=== PATIENT | female | born 1955 | race Caucasian/White ===

== ENCOUNTER 2022-07-10 23:18 | Emergency (ER) | payer MEDICARE, MEDICAID, SELFPAY ==
[2022-07-10 23:19] VITALS: BMI 26.3
--- NOTE | 2022-07-10 23:22 | W.ED.GENADLT ---
HPI - General Adult General: Chief complaint: General Medical Stated complaint: Hypertension Time Seen by Provider: 07/10/22 23:21 History of Present Illness: Ms. Yoo is a 67-year-old lady with history of hypertension who presents to the emergency department due to generalized mental health concern. She has noticed 1 day history of increased blood pressure associated with nausea and vomiting x2. She denies associated chest pain or shortness of breath. She has been a very considerable stress and her believes that this may be related. Otherwise denies medical concerns. She has been compliant with her medication regimen. Intensity of symptoms is moderate. Course has persisted. No other specific changes in health, exacerbating, or alleviating factors identified. Onset (ago): hour(s) Severity: moderate Associated symptoms: Reports malaise, nausea and vomiting Review of Systems General: Reports: 10 or more systems reviewed and unremarkable except in HPI and below Const: Reports: malaise GI: Reports: nausea and vomiting PFS ED PFSH: Medical History (Updated 07/25/22 @ 16:27 by Sebastián Rosen MD) Hypertension Surgical History (Updated 07/25/22 @ 16:27 by Sebastián Rosen MD) No significant past surgical history Social History (Updated 07/25/22 @ 16:27 by Sebastián Rosen MD) Smoking and tobacco status: never smoked Physical Exam Const: COMMON NORMALS: alert GENERAL APPEARANCE: cooperative and well developed HENMT: COMMON NORMALS: normocephalic and atraumatic HEAD & SCALP: normocephalic and atraumatic Eye: COMMON NORMALS: conjunctivae normal CONJUNCTIVA: Yes conjunctivae normal SCLERA: sclerae normal Neck/C-Spine: COMMON NORMALS: supple GENERAL: Yes trachea midline Resp: COMMON NORMALS: normal respiratory effort EFFORT & INSPECTION: Yes able to speak in complete sentences Cardio: COMMON NORMALS: regular rate and regular rhythm RATE: regular rate RHYTHM: regular rhythm GI: COMMON NORMALS: Soft to palpation PALPATION: Yes Soft to palpation and No Tenderness to palpation present (GI) PERCUSSION: normal to percussion Extremity: GENERAL: Yes normal exam except as noted and No edema Neuro: COMMON NORMALS: moves all extremities SENSORIUM/ORIENTATION: Yes alert and No Orientation impaired Psych: COMMON NORMALS: mental status grossly normal and Normal thought process present THOUGHT PROCESS: Normal thought process present Course ED course: - Patient was seen and evaluated by me at bedside - Patient placed on cardiac monitors, IV access obtained - Initial evaluation notable for exam as above - Labs and xrays personally interpreted by me. EKG shows sinus bradycardia with no STEMI - Fluids, antiemetic, and hypertensive given - Labs notable for mild leukocytosis. Normal hemoglobin. Metabolic panel with mild hypokalemia, replenishment ordered. - Imaging notable for no lobar consolidation or pneumothorax. - Upon serial reexamination after treatment the patient was improved. She did have mild diaphoresis associated with initial low blood pressure related to hydralazine. - Based on patient history, evaluation, and testing as interpreted the most likely cause of the patient's condition is hypertension and generalized illness of uncertain etiology - The results of ED evaluation were discussed with the patient including prescriptions and/or symptomatic cares (if applicable) including appropriate and responsible use, followup plan, and return precautions. The patient verbalized understanding and felt safe for discharge. - Patient discharged in satisfactory condition. Note: Click bubbles or prepopulated العراق[place] in note writing are used for assistance with data collection and billing and are inherently more limited than narrative and other text portions of this note. Please use narrative for additional clinical history and defer to narrative/free test for any case of contradictory information. If information appears in only free text or click bubble it should be considered present or absent as reported. Please contact note customs entry writer for clarifications of clinical information or contradictory information. MDM is a brief summary, contradictory or erroneous seeming information should be clarified and full note should be reviewed. Vital Signs: Vital signs: Vital Signs Temperature 98.0 F 07/10/22 23:24 Pulse Rate 59 L 07/11/22 03:06 Respiratory Rate 15 07/11/22 03:06 Blood Pressure 121/64 07/11/22 03:06 Pulse Oximetry 94 07/11/22 03:06 Oxygen Delivery Wa thod 07/10/22 23:24 MDM - General Adult Medical Decision Making 67-year-old lady with history of hypertension presenting with generalized illness associated with high blood pressure and increased stress lately. No evidence of endorgan dysfunction on ED evaluation. Patient is neurovascularly intact. Satisfactory for outpatient management. Medical Records I reviewed the patient's medical records. Lab Data I reviewed the patient's lab results. : 07/11/22 00:01 07/11/22 00:01 Radiology Impressions Chest X-Ray 07/10/22 23:23 IMPRESSION: Hazy and linear opacities in the left lower hemithorax likely represents atelectasis although left basilar pneumonitis cannot be excluded. Laboratory Results WBC 13.2 10^3/uL (4.0-10.0) H 07/11/22 00:01 Corrected WBC Cancelled 07/10/22 23:15 RBC 4.58 10^6/uL (4.1-5.3) 07/11/22 00:01 Hgb 13.6 g/dL (11.5-15.3) 07/11/22 00:01 Hct 40.2 % (37.0-47.0) 07/11/22 00:01 MCV 87.8 fl (81-99) 07/11/22 00:01 MCH 29.7 pg (28.0-34.0) 07/11/22 00:01 MCHC 33.8 g/dL (30.0-36.0) 07/11/22 00:01 RDW 12.7 % (12.1-15.1) 07/11/22 00:01 Plt Count 246 10^3/cmm (130-400) 07/11/22 00:01 MPV 11.2 fL (7.4-10.4) H 07/11/22 00:01 Gran % Cancelled 07/10/22 23:15 Neut % (Auto) 78.0 % 07/11/22 00:01 Lymph % (Auto) 13.1 % 07/11/22 00:01 [place] % (Auto) 6.2 % 07/11/22 00:01 Eos % (Auto) 1.7 % 07/11/22 00:01 Baso % (Auto) 0.5 % 07/11/22 00:01 Neut # (Auto) 10.32 10^3/uL (1.8-7.7) H 07/11/22 00:01 Lymph # (Auto) 1.7 10^3/uL (0.8-4.8) 07/11/22 00:01 [place] # (Auto) 0.8 10^3/uL (0.2-0.9) 07/11/22 00:01 Eos # (Auto) 0.2 10^3/uL (0.0-0.8) 07/11/22 00:01 Baso # (Auto) 0.1 10^3/uL (0.0-0.1) 07/11/22 00:01 Absolute Gran (auto) Cancelled 07/10/22 23:15 Nucleated RBC % (auto) 0 % 07/11/22 00:01 Nucleated RBCs # 0.0 /100WBC 07/11/22 00:01 Sodium 138 mmol/L (136-145) 07/11/22 00:01 Potassium 3.2 mmol/L (3.5-5.1) L 07/11/22 00:01 Chloride 98 mmol/L (98-107) 07/11/22 00:01 Carbon Dioxide 26 mmol/L (22-29) 07/11/22 00:01 Anion Gap 17.2 (5-19) 07/11/22 00:01 BUN 15 mg/dL (8-23) 07/11/22 00:01 Creatinine 0.6 mg/dL (0.5-0.9) 07/11/22 00:01 GFR Calculation 99.4 mL/min (90-130) 07/11/22 00:01 Glucose 154 mg/dL (65-115) H 07/11/22 00:01 POC Glucose 151 mg/dL (70-110) H 07/11/22 02:58 Calculated Osmolality 290 mOsm/kg (285-295) 07/11/22 00:01 Calcium 9.0 mg/dL (8.5-10.5) 07/11/22 00:01 Total Bilirubin 0.7 mg/dL (0.15-1.2) 07/11/22 00:01 AST 17 U/L (0-32) 07/11/22 00:01 ALT 21 U/L (0-33) 07/11/22 00:01 Alkaline Phosphatase 58 IU/L (35-105) 07/11/22 00:01 Troponin T Baseline 8 ng/L (0-10) 07/11/22 00:01 Troponin T 120 Minute 8.63 ng/L (0-10) 07/11/22 02:00 Delta Troponin T 0.63 ABS# (0-10) 07/11/22 02:00 NT-Pro-B Natriuret Pep 71 pg/mL (0-125) 07/11/22 00:01 Total Protein 7.2 g/dL (6.6-8.7) 07/11/22 00:01 Albumin 3.9 g/dL (3.5-5.2) 07/11/22 00:01 Globulin 3.3 g/dL (1.3-4.6) 07/11/22 00:01 Lipase 56 U/L (13-60) 07/11/22 00:01 TSH 0.96 uIU/mL (0.27-4.20) 07/11/22 00:01 Urine Color Yellow (Yellow) 07/10/22 23:45 Urine Appearance Clear (CLEAR) 07/10/22 23:45 Urine pH 6 (5-7) 07/10/22 23:45 Ur Specific [place] 1.015 (1.005-1.030) 07/10/22 23:45 Urine Protein Neg (Negative) 07/10/22 23:45 Urine Glucose (UA) Norm (Normal) 07/10/22 23:45 Urine Ketones 1+ (Negative) H 07/10/22 23:45 Urine Blood 2+ (Negative) H 07/10/22 23:45 Urine Nitrate Negative (Negative) 07/10/22 23:45 Urine Bilirubin Neg (Negative) 07/10/22 23:45 Urine Urobilinogen Neg mg/dL (Negative) 07/10/22 23:45 Ur Leukocyte Esterase Negative (Negative) 07/10/22 23:45 Urine RBC 10-15 /hpf (0-2) H 07/10/22 23:45 Urine WBC 0-4 /hpf (0-5) H 07/10/22 23:45 Ur Squamous Epith Cells 0-4 /hpf (0-5) H 07/10/22 23:45 Amorphous Sediment Not Reportable 07/10/22 23:45 Urine Bacteria Trace /hpf (NONE) 07/10/22 23:45 Urine Mucus 1+ /hpf 07/10/22 23:45 Discharge Plan Discharge Patient Disposition: Home Clinical Impression: Hypertension, Nausea & vomiting Condition: Stable Prescriptions: New ondansetron 4 mg tablet,disintegrating 4 mg PO Q8H PRN (Reason: nausea and vomiting) Qty: 15 0RF Discharge Orders: Discharge ED (Routine); Ordered 07/11/22 Ordered By: Sebastián Rosen Discharge Diet: Usual diet Discharge Activity: Increase activity as tolerated Patient Instructions: Acute Nausea and Vomiting (ED), Hypertension (ED) Activity Restrictions/Additional Instructions: Thank you for visiting the emergency department. You were seen and evaluated for high blood pressure associate with nausea and vomiting. The exact cause of your symptoms is unclear though does not appear to need hospitalization at this time. Please follow-up with your primary care provider. Please keep a log of your blood pressure at home. Return to the emergency department for anything that you are concerned about a feel needs emergency department evaluation. Coding Level of Care Code ED Hot Dip Plater for David Cohn
--- NOTE | 2022-07-10 23:23 | XRR_ITS ---
PROCEDURE INFORMATION: Exam: XR Chest Exam date and time: 07/11/2022 12:01 AM Age: 67 years old Clinical indication: Patient HX: Patient staying hypertensive after taking medication. ; Additional info: Hypertension TECHNIQUE: Imaging protocol: Radiologic exam of the chest. Views: 1 view. COMPARISON: No relevant prior studies available. FINDINGS: Lungs: Some hazy linear opacities are seen in the left lung base likely representing atelectasis. Left basilar pneumonitis cannot entirely excluded. Pleural spaces: Unremarkable. No pleural effusion. No pneumothorax. Heart/Mediastinum: Unremarkable. No cardiomegaly. Bones/joints: Unremarkable. XR/XR chest 1V portable [id number] IMPRESSION: Hazy and linear opacities in the left lower hemithorax likely represents atelectasis although left basilar pneumonitis cannot be excluded.
[2022-07-10 23:24] VITALS: BP 183/72; PULSE 58; RESP 16; TEMP 36.7; O2SAT 96
--- NOTE | 2022-07-10 23:39 | ECG_ITS ---
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 Measurements Intervals [place] Rate: 55 P: 35 [place]: 175 QRS: 12 QRSD: 113 T: 50 QT: 431 QTc: 414 Interpretive Statements SINUS BRADYCARDIA MODERATE INTRAVENTRICULAR CONDUCTION DELAY [110+ ms QRS DURATION] NONSPECIFIC T-WAVE ABNORMALITY No previous ECG available for comparison Electronically Signed On 07-11-2022 20:32:34 CDT by Juan J Dempsey M.D. [id number]
[2022-07-11 00:12] LABS: Basophils # 0.1 10^3/uL (0.0-0.1); Basophils % 0.5 %; Eosinophils # 0.2 10^3/uL (0.0-0.8); Eosinophils % 1.7 %; Hematocrit 40.2 % (37.0-47.0); Hemoglobin 13.6 g/dL (11.5-15.3); Lymphocytes # 1.7 10^3/uL (0.8-4.8); Lymphocytes % 13.1 %; Mean Corpuscular HGB Conc 33.8 g/dL (30.0-36.0); Mean Corpuscular Hemoglobin 29.7 pg (28.0-34.0); Mean Corpuscular Volume 87.8 fl (81-99); Mean Platelet Volume 11.2 fL (7.4-10.4); Monocytes # 0.8 10^3/uL (0.2-0.9); Monocytes % 6.2 %; Neutrophils # 10.32 10^3/uL (1.8-7.7); Nucleated Red Blood Cells % 0 %; Platelet Count 246 10^3/cmm (130-400); Red Blood Count 4.58 10^6/uL (4.1-5.3); Red Cell Distribution Width 12.7 % (12.1-15.1); White Blood Count 13.2 10^3/uL (4.0-10.0)
[2022-07-11 00:15] LABS: Add Urine Microscopic? YES; Bilirubin Urine Neg (Negative); Blood Urine 2+ (Negative); Glucose Urine UA Norm (Normal); Ketones Urine 1+ (Negative); Leukocyte Esterase Urine Negative (Negative); Nitrate Urine Negative (Negative); Protein Urine Neg (Negative); Specific Gravity, Urine 1.015 (1.005-1.030); Urine Appearance Clear (CLEAR); Urine Color Yellow (Yellow); Urobilinogen Urine Neg (Negative); pH Urine 6 (5-7)
[2022-07-11 00:16] LABS: Add Urine Culture? Yes; Bacteria Urine TRACE /hpf; Mucus Urine 1+ /hpf; Squamous Epithelial Cell Urine 0-4 /hpf (0-5); WBC Urine 0-4 /hpf (0-5)
[2022-07-11 00:37] LABS: Troponin(5th) Baseline 8 ng/L (0-10)
[2022-07-11 00:42] LABS: Alanine Aminotransferase 21 U/L (0-33); Albumin Level 3.9 g/dL (3.5-5.2); Alkaline Phosphatase 58 IU/L (35-105); Anion Gap 17.2 (5-19); Aspartate Amino Transferase 17 U/L (0-32); Blood Urea Nitrogen 15 mg/dL (8-23); Carbon Dioxide 26 mmol/L (22-29); Chloride 98 mmol/L (98-107); Globulin 3.3 g/dL (1.3-4.6); Glomerular Filtration Rate 99.4 mL/min (90-130); Glucose 154 mg/dL (65-115); Lipase 56 U/L (13-60); NT Pro B Type Natriuretic Pept 71 pg/mL (0-125); Osmolality Calculated 290 mOsm/kg (285-295); Potassium 3.2 mmol/L (3.5-5.1); Sodium 138 mmol/L (136-145); Thyroid Stimulating Hormone 0.96 uIU/mL (0.27-4.20); Total Bilirubin 0.7 mg/dL (0.15-1.2); Total Protein 7.2 g/dL (6.6-8.7)
[2022-07-11] MEDS: potassium chloride ER 20 mEq Tablet 40 MEQ PO (00:57)
[2022-07-11] MEDS: ondansetron 2 mg/ML SDV 2 mL 4 MG IVP (00:58)
[2022-07-11 01:16] VITALS: BP 173/89; PULSE 57; RESP 12; O2SAT 93
--- NOTE | 2022-07-11 01:29 | ECG_ITS ---
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 Measurements Intervals [place] Rate: 54 P: 47 HI: 166 QRS: 25 QRSD: 93 T: 64 QT: 425 QTc: 404 Interpretive Statements SINUS BRADYCARDIA NONSPECIFIC T-WAVE ABNORMALITY No previous ECG available for comparison Electronically Signed On 07-11-2022 20:34:05 CDT by Juan J Dempsey M.D. [email or web address] [email or web address]/[id number]
[2022-07-11] MEDS: hyDRALAzine 20 mg/mL INJ 1 mL 10 MG IVP (01:32)
[2022-07-11 02:00] VITALS: BP 150/77; PULSE 65; RESP 17; O2SAT 96
[2022-07-11 02:43] LABS: Troponin 5 2HR 8.63 ng/L (0-10)
[2022-07-11 02:45] LABS: Troponin 5 2HR Delta 0.63 ABS# (0-10)
[2022-07-11 02:55] VITALS: BP 115/64; PULSE 60; RESP 13; O2SAT 96
[2022-07-11 03:01] LABS: Glucose Point of Care 151 mg/dL (70-110)
[2022-07-11 03:06] VITALS: BP 121/64; PULSE 59; RESP 15; O2SAT 94
== END 2022-07-11 03:08 | disposition home or self-care (01) ==
PROVIDERS: Emergency Provider Emergency Medicine
DX: I10 Essential (primary) hypertension (principal); R11.2 Nausea with vomiting, unspecified
CPT/HCPCS: 36416; 71045; 80053; 81001; 81003; 82962; 83690; 83880; 84443; 84484; 85025; 87086; 93005; 96374; 96375; 99285; J0360; J2405